=== PATIENT | male | born 1950 | race Caucasian/White ===

== ENCOUNTER 2016-06-11 23:18 | Inpatient (IN) | payer MEDICARE ==
[2016-06-17] MEDS ORDERED: LOPRESSOR DPS12.5 MG PO (07:06)
[2016-06-17] MEDS ORDERED: SYNTHROID DPS0.15 MG PO (07:07)
[2016-06-17] MEDS ORDERED: CARDURA4 MG PO (07:07)
[2016-06-17] MEDS ORDERED: PRILOSEC DPS20 MG PO (07:07)
[2016-06-17] MEDS ORDERED: ATORVASTATIN CA20 MG PO (07:07)
[2016-06-17] MEDS ORDERED: LASIX DPS20 MG PO (07:07)
[2016-06-17] MEDS ORDERED: VANTIN DPS200 MG PO (07:08)
[2016-06-17] MEDS ORDERED: BENADRYL25 MG PO (07:08)
[2016-06-17] MEDS ORDERED: CALCIUM WITH V1 EAC1 PO (07:08)
== END 2016-06-16 10:50 | disposition home or self-care (01) | DRG 872 ==
DX: A41.51 Sepsis due to Escherichia coli [E. coli] (principal); E83.42 Hypomagnesemia; I12.9 Hypertensive chronic kidney disease with stage 1 through stage 4 chronic kidney disease, or unspecified chronic kidney disease; N39.0 Urinary tract infection, site not specified; N41.0 Acute prostatitis; E78.5 Hyperlipidemia, unspecified; F41.9 Anxiety disorder, unspecified; N40.0 Benign prostatic hyperplasia without lower urinary tract symptoms; N18.9 Chronic kidney disease, unspecified; G47.30 Sleep apnea, unspecified; G47.33 Obstructive sleep apnea (adult) (pediatric); E83.39 Other disorders of phosphorus metabolism; E87.6 Hypokalemia; E03.9 Hypothyroidism, unspecified; Z87.442 Personal history of urinary calculi; Z85.528 Personal history of other malignant neoplasm of kidney; Z90.5 Acquired absence of kidney; Z85.830 Personal history of malignant neoplasm of bone